=== PATIENT | female | born 1970 | race Caucasian/White ===

== ENCOUNTER 2016-07-11 12:49 | Emergency (ER) | END 2016-07-11 15:14 | disposition home or self-care (01) | DX: N30.00 Acute cystitis without hematuria (principal) ==

== ENCOUNTER 2016-11-08 11:37 | Day surgery (SDC) | payer OTHER ==
[~2016-11-08] VITALS: Ht 157.5 cm; Wt 60.9 kg
[~2016-11-08 11:37] MED LIST: BENZ100C70 PO; CIPR500T4 PO; CYCL-319 PO; D-ME118S6 PO; FLUT9.9S NASAL; HYDR-3498 PO; IMO2 PO; NAPR-260 PO; NAPR220C2 PO; NITR-58 PO; PHEN-537 PO; PROM6.25 PO; PSEU30TA38 PO; TRAM50TA2 PO
[2016-11-08 12:33] VITALS: Ht 157.5 cm; Wt 60.9 kg
[2016-11-08] MEDS ORDERED: CHOL100062 PO (12:41)
[2016-11-08 12:52] VITALS: BP 124/77; PULSE 66; RESP 16
[2016-11-08] MEDS ORDERED: FENTAnyl 50 MCG/ML VIAL ONE (13:45)
[2016-11-08] MEDS ORDERED: MIDAZOLAM 1 MG/ML 2 ML INJ ONE ×2 (13:45)
[2016-11-08 14:05] VITALS: BP 112/69; PULSE 63; RESP 15
--- NOTE | 2016-11-08 14:42 | GILP ---
DATE OF PROCEDURE: 11/08/2016 NAME OF PROCEDURE: Colonoscopy. SURGEON: Oneyda Cesar MD PREOPERATIVE DIAGNOSES: 1. Change in bowel habit. 2. Lower abdominal pain. POSTOPERATIVE DIAGNOSES: 1. Colonoscopy all the way to the cecum. 2. Internal hemorrhoids. 3. No colitis or neoplasm was identified. INDICATION FOR THE PROCEDURE: Ms. Divya Walsh is a 46-year-old female patient who had left lower quadrant abdominal pain. She also noticed a change in the bowel habit. Abdominal CT scan was iris l. The patient was scheduled for colonoscopy for further evaluation. The procedure and possible complications were well explained to the patient. She understood and con sented to the procedure. DESCRIPTION OF PROCEDURE: Under the influence of fentanyl and Versed, the colonoscope was carefully introduced in the rectum, and under direct vision, it was advanced all the way to the cecum. FINDINGS: The patient had internal hemorrhoids. No colitis or neoplasm was identified. She tolerated the procedure very well, and there was no complication from the procedure. At the end of the procedure, she was awake with stable vital signs, and she was discharged home to the care of her family. IMPRESSION: 1. Colonoscopy all the way to the cecum. 2. Small internal hemorrhoids. 3. No colitis or neoplasm was identified. PLAN: 1. Bentyl 10 mg p.o. t.i.d. p.r.n. for pain. 2. Next screening colonoscopy in 10 years. Dictated By: ONEYDA ALEXANDRA/MIGUEL Conf#: [id number] DID#: [id number] CC: MARIE MEYER MD;*End*
== END 2016-11-08 14:57 | disposition home or self-care (01) ==
LOC: GIL 11:37
PROVIDERS: ATTEND Internal Medicine Gastroenterology
DX: R19.4 Change in bowel habit (principal); K64.8 Other hemorrhoids
CPT/HCPCS: 45378; 84703; J2250; J3010

== ENCOUNTER 2017-06-13 13:10 | Emergency (ER) | END 2017-06-13 19:06 | disposition home or self-care (01) ==

== ENCOUNTER 2017-10-12 09:16 | Emergency (ER) | END 2017-10-12 11:55 | disposition home or self-care (01) ==

== ENCOUNTER 2017-12-14 18:02 | Emergency (ER) | END 2017-12-14 20:52 | disposition home or self-care (01) ==